=== PATIENT | male | born 1995 | race Caucasian/White ===

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

== ENCOUNTER 2017-02-07 20:20 | Emergency (ER) | payer BC ==
[~2017-02-07] VITALS: Ht 170.2 cm; Wt 61.5 kg
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
--- OUTSIDE RECORDS SUMMARY | 2017-02-07 20:31 | XMS REPORT | Continuity of Care Document ---
Author Author [facility] Organization [facility] Address Unknown Phone Unavailable Allergies Active Description Code Type Severity Reaction Onset Reported/Identified Relationship to Patient Clinical Status Yes No Known Drug Allergies [id number] Drug Allergy Unknown N/ A 11/08/2016 Medications [...] BRONCHITIS NOS 02/13/2015 Ot 493.90 02/22/2015 LARS TATE MD Ot 380.4 IMPACTED CERUMEN 02/22/2015 LARS [...] Ot R10.84 GENERALIZED ABDOMINAL PAIN 11/08/2016 NANETTE ELDRIDGE MD, Ot M54.89 OTHER DORSALGIA 11/08/2016 NANETTE [...] ELDRIDGE MD, Ot Y92.[address] IN [facility] NON-INSTITUT ( PRIVATE) 11/11/2016 NANETTE ELDRIDGE [...] ELDRIDGE MD, Ot Y92.[address] IN [facility] NON-INSTITUT ( PRIVATE) 11/14/2016 SHIRLEY LAMA [...] M79.641 PAIN IN RIGHT HAND 12/10/2016 SHIRLEY LAMA R Ot D72.829 ELEVATED WHITE BLOOD CELL [...] Status Pt. Type Provider Facility Loc./Unit Complaint [id number] 06/23/2015 20:44:00 2014 23:27:00 DIS Emergency [facility] D.ER
[2017-02-07] MEDS ORDERED: BECL8.7A5 IH (20:43)
[2017-02-07 21:04] LABS: BASOPHILS % (AUTO) 0 % (0-2); EOSINOPHILS # (AUTO) 0.2 10^3uL; EOSINOPHILS % (AUTO) 1 % (0-4); LYMPHOCYTES # (AUTO) 1.5 X10^3; MEAN CORPUSCULAR HEMOGLOBIN 29.4 PG (26.0-34.0); MEAN CORPUSCULAR HGB CONC 34.8 g/dL (31.0-37.0); MEAN CORPUSCULAR VOLUME 84 FL (80-100); MONOCYTES # (AUTO) 0.5 X10^3; MONOCYTES % (AUTO) 4 % (3-11); NEUTROPHILS # (AUTO) 9.9 X10^3; NEUTROPHILS % (AUTO) 82 % (51-67); PLATELET COUNT 269 10^3uL (150-450); WHITE BLOOD COUNT 12.01 10^3uL (4.0-11.0)
[2017-02-07 21:11] LABS: BILIRUBIN,URINE Negative (Negative); CLARITY,URINE Clear; COLOR,URINE Yellow; GLUCOSE, URINE (UA) Negative (Negative); LEUKOCYTE ESTERASE, URINE Negative (Negative)
[2017-02-07 21:14] LABS: ALBUMIN 5.1 g/dL (3.4-5.0); ALKALINE PHOSPHATASE 82 U/L (38-126); ANION GAP 17.2 MEQ/L (3-15); BUN/CREATININE RATIO 10 (10-20); TOTAL PROTEIN 8.4 g/dL (6.4-8.5)
[2017-02-07 21:20] LABS: AMPHETAMINE SCREEN, URINE Negative (Negative); CANNABINOID SCREEN, URINE Negative (Negative); METHAMPHETAMINE SCREEN URINE S NEGATIVE (NEGATIVE); OPIATE SCREEN URINE Negative (Negative); PROPOXYPHENE STAT NEGATIVE (NEGATIVE)
[2017-02-07 21:46] VITALS: BP 140/79
== END 2017-02-07 21:45 | disposition home or self-care (01) ==
LOC: ED 20:25
DX: R55 Syncope and collapse (principal); R11.2 Nausea with vomiting, unspecified; F32.9 Major depressive disorder, single episode, unspecified
CPT/HCPCS: 36415; 80053; 80307; 80320; 80329; 81003; 85025; 99282; 99283

== ENCOUNTER → 2017-02-07 | Outpatient (CLI) | payer SELFPAY | LOC: EMS 20:08 | DX: Z53.20 Procedure and treatment not carried out because of patient's decision for unspecified reasons (principal) ==

== ENCOUNTER 2017-03-08 20:26 | Emergency (ER) | payer BC ==
[~2017-03-08] VITALS: Ht 243.8 cm; Wt 62.3 kg
--- OUTSIDE RECORDS SUMMARY | 2017-03-08 20:31 | XMS REPORT | Continuity of Care Document ---
Author Author [facility] Organization [facility] Address Unknown Phone Unavailable Allergies Active Description Code Type Severity Reaction Onset Reported/Identified Relationship to Patient Clinical Status Yes No Known Drug Allergies [id number] Drug Allergy Unknown N/ A 11/08/2016 Yes MACADAMIA NUTS MACADAMIA NUTS Moderate N/A 02/07/2017 Medications Problems Date Dx Coded Attending Type [...] DALEY, ARIEL Ot 462 ACUTE PHARYNGITIS 09/17/2014 FRANKIE DALEY, ARIEL Ot 490 BRONCHITIS NOS 02/13/2015 Ot 493.90 [...] 850.9 CONCUSSION NOS 07/10/2015 KIESHA DALEY, WU L Ot 920 CONTUSION FACE/SCALP/NCK 07/10/2015 KIESHA DALEY, WU Inderjit Ot E006.0 ACTIVITIES INVOLVING ROLLER SKATING ( INL 07/10/2015 KIESHA DALEY, WU L Ot E849.4 ACCID IN RECREATION AREA 07/10/2015 KIESHA DALEY, WU Inderjit Ot E885.2 ACCIDENT DUE TO SKATEBOARD 07/11/2015 PREM WARREN DO Ot 784.0 HEADACHE 07/11/2015 PREM WARREN DO Ot 850.11 CONCUSSION, W LOSS OF CONSCIOUSNESS OF 3 07/11/2015 PREM WARREN DO Ot E885.2 ACCIDENT DUE TO SKATEBOARD 08/12/2015 PREM WARREN DO Ot S40.011A CONTUSION OF RIGHT SHOULDER, INITIAL ENC 08/29/2015 PREM WARREN DO Ot 784.0 08/29/2015 PREM WARREN DO Ot 850.0 10/20/2015 DORIAN MICHELLE MD Ot M54.9 DORSALGIA, UNSPECIFIED 10/20/2015 DORIAN MICHELLE MD Ot M62.830 MUSCLE SPASM OF BACK 12/31/2015 Ot J02.0 01/15/2016 Ot J02.0 05/26/2016 PREM WARREN DO Ot 493.90 ASTHMA, UNSPECIFIED 05/26/2016 Ot 493.90 ASTHMA, UNSPECIFIED 05/26/2016 PREM WARREN DO Ot 784.0 HEADACHE 05/26/2016 PREM WARREN DO Ot 850.0 CONCUSSION W/O COMA 05/26/2016 Ot J02.0 STREPTOCOCCAL PHARYNGITIS 05/26/2016 LUIS E DALEY, ARNOL Negro Ot R10.84 GENERALIZED ABDOMINAL PAIN 06/03/2016 ARNOL KIMBROUGH MD Ot R10.84 GENERALIZED ABDOMINAL PAIN 11/01/2016 PRINCESS BERMUDEZ MD Ot R10.84 GENERALIZED ABDOMINAL PAIN 11/01/2016 PRINCESS BERMUDEZ MD Ot M43.06 SPONDYLOLYSIS, LUMBAR REGION 11/01/2016 PRINCESS BERMUDEZ MD Ot R10.84 GENERALIZED ABDOMINAL PAIN 11/01/2016 SHIRLEY LAMA R Ot R10.84 GENERALIZED ABDOMINAL PAIN 11/03/2016 PRINCESS BERMUDEZ MD Ot R10.84 GENERALIZED ABDOMINAL PAIN 11/03/2016 PRINCESS BERMUDEZ MD Ot M43.06 SPONDYLOLYSIS, LUMBAR REGION 11/03/2016 PRINCESS BERMUDEZ MD Ot R10.84 GENERALIZED ABDOMINAL PAIN 11/04/2016 SHIRLEY LAMA R Ot R10.84 GENERALIZED ABDOMINAL PAIN 11/05/2016 PRINCESS BERMUDEZ MD Ot R10.84 GENERALIZED ABDOMINAL PAIN [...] ELDRIDGE MD, Ot Y92.[address] IN [facility] NON-INSTITUT ( PRIVATE) 11/11/2016 NANETTE ELDRIDGE [...] ELDRIDGE MD, Ot Y92.[address] IN [facility] NON-INSTITUT ( PRIVATE) 11/14/2016 SIGSHIRLEY WARNER R Ot R10.811 RIGHT UPPER QUADRANT ABDOMINAL TENDERNES 11/17/2016 Princess Bermudez MD R55 SYNCOPE AND COLLAPSE 11/17/2016 Princess Bermudez MD R55 SYNCOPE AND COLLAPSE 11/20/2016 SIGSSHIRLEY ARREDONDO R Ot R10.84 GENERALIZED ABDOMINAL PAIN 11/20/2016 SIGSDIOGO MERIDA SHIRLEY R Ot R10.811 RIGHT UPPER QUADRANT ABDOMINAL TENDERNES 11/27/2016 SIGSSHIRLEY ARREDONDO R Ot M79.641 PAIN IN RIGHT HAND 11/28/2016 SIGSBESHIRLEY MCGHEE R Ot M79.641 PAIN IN RIGHT HAND 11/28/2016 PRINCESS BERMUDEZ MD Ot R10.84 GENERALIZED ABDOMINAL PAIN 11/28/2016 SIGSSHIRLEY ARREDONDO R Ot R10.84 GENERALIZED ABDOMINAL PAIN 11/28/2016 PRINCESS BERMUDEZ MD, Ot M43.06 SPONDYLOLYSIS, LUMBAR REGION 11/28/2016 PRINCESS BERMUDEZ MD Ot R10.84 GENERALIZED ABDOMINAL PAIN 11/28/2016 SIGSBESHIRLEY MCGHEE R Ot R10.811 RIGHT UPPER QUADRANT ABDOMINAL TENDERNES 11/28/2016 SIGSBEDebbie MERIDA SHIRLEY R Ot M79.641 PAIN IN RIGHT HAND 11/28/2016 SIGSBEDebbie MERIDA SHIRLEY R Ot D72.829 ELEVATED WHITE BLOOD CELL COUNT, UNSPECI 12/10/2016 SIGSHIRLEY WARNER R Ot M79.641 PAIN IN RIGHT HAND 12/10/2016 SIGSBEDebbie MERIDA SHIRLEY R Ot D72.829 ELEVATED WHITE BLOOD CELL COUNT, UNSPECI 02/07/2017 PRINCESS BERMUDEZ MD Ot R10.84 GENERALIZED ABDOMINAL PAIN 02/07/2017 SHIRLEY LAMA R Ot R10.84 GENERALIZED ABDOMINAL PAIN 02/07/2017 KAISER FRANCOIS MD, PRINCESS Ponce Ot M43.06 SPONDYLOLYSIS, LUMBAR REGION 02/07/2017 PRINCESS BERMUDEZ MD Ot R10.84 GENERALIZED ABDOMINAL PAIN 02/07/2017 SHIRLEY LAMA R Ot R10.811 RIGHT UPPER QUADRANT ABDOMINAL TENDERNES 02/07/2017 SIGSSHIRLEY ARREDONDO R Ot M79.641 PAIN IN RIGHT HAND 02/07/2017 SIGSCORTNEY ARREDONDOLL R Ot D72.829 ELEVATED WHITE BLOOD CELL COUNT, UNSPECI 02/07/2017 WARREN DO, PREM Tamela Ot 493.90 ASTHMA, UNSPECIFIED 02/07/2017 Ot 493.90 ASTHMA, UNSPECIFIED 02/07/2017 WARREN DO, PREM Rapp Ot 784.0 HEADACHE 02/07/2017 KELVIN ROBERTSON PREM Tamela Ot 850.0 CONCUSSION W/O COMA 02/07/2017 Ot J02.0 STREPTOCOCCAL PHARYNGITIS 02/07/2017 PRINCESS BERMUDEZ MD Ot R10.84 GENERALIZED ABDOMINAL PAIN 02/07/2017 SIGSHIRLEY WARNER R Ot R10.84 GENERALIZED ABDOMINAL PAIN 02/07/2017 PRINCESS BERMUDEZ MD Ot M43.06 SPONDYLOLYSIS, LUMBAR REGION 02/07/2017 PRINCESS BERMUDEZ MD Ot R10.84 GENERALIZED ABDOMINAL PAIN 02/07/2017 SHIRLEY LAMA R Ot R10.811 RIGHT UPPER QUADRANT ABDOMINAL TENDERNES 03/05/2017 ARNOL KIMBROUGH MD Ot F32.9 MAJOR DEPRESSIVE DISORDER, SINGLE EPISOD 03/05/2017 ARNOL KIMBROUGH MD Ot R11.2 NAUSEA WITH VOMITING, UNSPECIFIED 03/05/2017 ARNOL KIMBROUGH MD Ot R55 SYNCOPE AND COLLAPSE Procedures Results Test Result Range Complete blood [...] Blood absolute eosinophil count 0.3 Basophils 0.0 UA (urinalysis) - 02/07/17 20:40 COLLECTION METHOD CLEAN CATCH Color of urine by auto Yellow Urine appearance determination Clear Urine pH measurement by automated test strip 7.0 5.0 - 8.0 Specific gravity of urine by automated test strip 1.020 1.005-1.030 PROTEIN, URINE Negative Urine glucose detection by automated test strip Negative Negative Urine erythrocytes count by automated test strip (number/volume) Negative Negative Urine ketones detection by automated test strip Trace Negative NITRITE,URINE Negative Negative Urine total bilirubin detection by automated test strip Negative Negative Urine urobilinogen measurement by automated test strip (mass/volume) 1.0 0.2-1.0 Urine leukocyte esterase detection by dipstick Negative Negative DRUG SCREEN STAT - 02/07/17 20:40 Urine phencyclidine detection by screening method >25 [...] Negative Drugs of abuse panel NEGATIVE NEGATIVE Comprehensive metabolic panel - 02/07/17 20:58 Sodium measurement 96 70-110 CARBON DIOXIDE 28 22-29 Serum or plasma anion gap 17.2 3-15 BLOOD UREA NITROGEN 9 7-18 CREATININE SERUM 0.88 0.8-1.5 Brucella species antibody panel (IgG, IgM) 10 10-20 Estimated glomerular filtration rate (GFR) 135.0 Estimated glomerular filtration rate (GFR) non- 111.6 OSMOLALITY,CALCULATED 278 280-300 CALCIUM 10.0 8.8-10.8 Calculated ionized calcium measurement 4.0 3.8-4.6 BILIRUBIN,TOTAL 1.0 0.1-1.0 Serum or plasma alkaline phosphatase measurement 82 38-126 ASPARTATE AMINO TRANSFERASE 22 15-37 ALANINE AMINOTRANSFERASE 34 30-65 Serum or plasma total protein measurement 8.4 6.4-8.5 Serum or plasma albumin measurement 5.1 3.4-5.0 Serum or plasma albumin/globulin mass ratio 1.545 1.1-1.8 SALICYLATE - 02/07/17 20:58 SALICYLATE < 1.0 2.0-20.0 ACETAMINOPHEN - 02/07/17 20:58 ACETAMINOPHEN < 10.0 10.0-30.0 ALCOHOL - 02/07/17 20:58 ALCOHOL < 10.0 10-80 Complete blood count (CBC) with automated white blood cell (WBC) differential - 02/07/17 20:58 Blood automated leukocyte count 12.01 4.0-11.0 Erythrocytes 5.24 4.50-5.50 12.0-16.0;g/dL 15.4 13.5-17.0 Hematocrit 44.20 39.00-50.00 Automated erythrocyte mean corpuscular volume 84 80-100 Mean corpuscular hemoglobin (MCH) determination 29.4 26.0-34.0 Automated erythrocyte mean corpuscular hemoglobin concentration measurement ( mass/volume) 34.8 31.0-37.0 Erythrocyte distribution width 12.1 11.8 -15.6 Automated blood platelet count 269 150- 450 Automated blood platelet mean volume measurement 10.0 6.0-9.5 Automated neutrophil percentage 82 51- 67 Lymphocytes/100 leukocytes 12 20-46 Automated monocyte percentage 4 3-11 Eosinophil count auto 1 0-4 Automated basophil percentage 0 0-2 Automated blood neutrophil count 9.9 Blood lymphocytes count (number/volume) 1.5 Automated blood monocyte count 0.5 Blood absolute eosinophil count 0.2 Basophils 0.0 Encounters ACCT No. Visit Date/Time Discharge Status Pt. Type Provider Facility Loc./Unit Complaint [id number] 06/23/2015 20:44:00 2014 23:27:00 DIS Emergency Jensen Moreno [facility]
--- NOTE | 2017-03-08 20:35 | NUR ---
Pt presents to ER with c/o fish fin in left hand. Incident happened while fishing at [employer] about one hour ago. Pt unable to get fin out on his own. Admitted to ER room 7. Accompanied by Dad.
--- OUTSIDE RECORDS SUMMARY | 2017-03-08 20:35 | XMS REPORT | Continuity of Care Document ---
Author Author [facility] Organization [facility] Address Unknown Phone Unavailable Allergies Active Description Code Type Severity Reaction Onset Reported/Identified Relationship to Patient Clinical Status Yes No Known Drug Allergies [id number] Drug Allergy Unknown N/ A 11/08/2016 Yes [...] Jensen Moreno E928.8 ACCIDENT NEC 07/01/2015 LARS ATTE MD Ot 922.1 CONTUSION OF CHEST WALL [...] Ot E885.2 ACCIDENT DUE TO SKATEBOARD 08/12/2015 PERM WARREN DO Ot S40.011A CONTUSION OF RIGHT [...] ELDRIDGE MD, Ot Y92.[address] IN [facility] NON-INSTITUT ( PRIVATE) 11/11/2016 NANETTE ELDRIDGE MD, [...] ELDRIDGE MD, Ot Y92.[address] IN [facility] NON-INSTITUT ( PRIVATE) 11/14/2016 SIGSHIRLEY WARNER R [...] Status Pt. Type Provider Facility Loc./Unit Complaint [id number] 06/23/2015 20:44:00 2014 23:27:00 DIS Emergency Jensen Moreno [facility]
[2017-03-08] MEDS ORDERED: LIDOCAINE/EPINEPHRINE 2% 1:100,000 (XYLOCAINE) 30 ML VIAL INJ ONE (20:55)
--- NOTE | 2017-03-08 21:39 | Diagnostic Imaging Report ---
Indication: Left thumb pain after being struck by a catfish. Discussion: Three views left hand were obtained, no comparison. There is a 1.5 cm linear osseous structure adjacent to the first metacarpal midshaft between the first and second metacarpals, consistent with a catfish spine fragment. No other radiopaque foreign body identified. No acute fracture or dislocation. Soft tissue swelling is noted within the web between the first and second fingers. Impression: 1. Osseous foreign body within the soft tissue web between the first and second metacarpals. Dictated by: Dictated on workstation # [id number]
[2017-03-08] MEDS ORDERED: HYDROcodone/APAP 5 MG/325 MG (NORCO) TAB PO ONE (22:00)
[2017-03-08] MEDS ORDERED: CEPHALEXIN 500 MG (KEFLEX) CAPSULE PO ONE (22:00)
[2017-03-08] MEDS ORDERED: HYDR-3702 PO (23:34)
[2017-03-08] MEDS ORDERED: CEPH500T PO (23:34)
[2017-03-08] MEDS ORDERED: ED- CEPHALEXIN 500 MG (KEFLEX) 6 CAPSULES/BTL PO ONE (23:35)
[2017-03-08] MEDS ORDERED: ED- HYDROcodone/ACETAMINOPHEN 5MG/325MG (NORCO) 6 TABLETS/BTL PO ONE (23:35)
--- NOTE | 2017-03-08 23:52 | NUR ---
Pt dismissed to home with instructions, prepacks and information for orthopedic surgeon in [place]. Pt and pt's father stated their understanding. Work excuse provided. Disk from radiology given to pt. Pt left ambulatory to [facility].
[2017-03-09 00:27] VITALS: BP 127/76
--- NOTE | 2017-03-09 07:17 | Diagnostic Imaging Report ---
CLINICAL INDICATION: Evaluate hand. EXAM: X-ray of the left hand, AP view. COMPARISON: X-ray of the left hand, 3 views dated 03/08/2017. FINDINGS: Again seen linear radiodense foreign object seen within the soft tissue adjacent to the first metacarpal bone. Bony ossicle is seen in the first MCP joint region. The remainder of the left hand is unremarkable. IMPRESSION: Stable x-ray of the left hand with linear radiodense foreign body in the soft tissue adjacent to the first metacarpal bone. Dictated by: Dictated on workstation # [id number]
--- NOTE | 2017-03-09 10:39 | EMERGENCY ROOM REPORT ---
DATE OF NOTE: 03/08/2017 CHIEF COMPLAINT: Foreign body in left hand HISTORY OF PRESENT ILLNESS: Jai is a 21-year-old who was fishing this evening at [employer], when he pulled a catfish up the bank and grasped it behind its head. The fish slipped within his hand, and one of the fish's barbs embedded itself in the soft tissue between the first and second metacarpals, with its entrance more on the dorsal surface. They were having difficulty removing it, so his father clipped the aditya about one-half inch above the skin or less, to release the fish. At some point the aditya advanced further into the soft tissue, or edema caused it to no longer protrude, and it became embedded in the soft tissues of the hand. The patient was seen by Dr. Mccormack, who explored the entrance wound under local anesthetic but was not able to find the aditya. I was then called to assess the patient. His tetanus vaccination is up to date and he is otherwise healthy. PHYSICAL EXAM: Temperature 98.3. Heart rate 86. BP 146/90. General: The patient is a young gentleman alert and orientated times 3 in no acute distress. Extremities: Inspection of the left hand reveals an open wound near the MP joint and on the dorsal aspect of the web space between the thumb and index finger. There was a wound about 6 to 7 mm in length orientated longitudely. There was some soft tissue edema and tenderness around the area, with some blanching of the skin from the Lidocaine that had been injected previously. He had difficulty squeezing my fingers and flexing his thumb and index finger due to discomfort. He was not able to extend his thumb and first finger completely either. Motor function seemed to be intact except for some numbness along the inner aspect of the thumb due to the Lidocaine. All five digits of the left hand were warm, pink and well-vascularized. ASSESSMENT: Foreign body, left hand. PLAN: I did explore the entrance wound myself using sterile technique, prepping the area with Betadine. Two percent Lidocaine with Epinephrine was injected around the wound and to a lesser extend into the subcutaneous tissue. The wound was then extended proximally about 5 mm, and a hemostat was used to gently probe the subcutaneous space and the space along the base of the second metacarpal. I was not able to see the foreign body or anything that resembled it. I did use my LUPES for visualization, but still was not able to identify the aditya. After approximately 20 minutes of gentle exploration and analyzing different possible entrance angles, I decided to stop. The wound was irrigated with sterile saline then closed with a single 4-O Ethanlon stitch, with plans for the patient to see a sandy patrick tomorrow for consultation. He will be kept on oral antibiotics administered by Dr. Mccormack and given a prescription for pain medicine.
== END 2017-03-08 23:52 | disposition home or self-care (01) ==
LOC: ED 20:30
DX: S61.442A Puncture wound with foreign body of left hand, initial encounter (principal); W45.8XXA Other foreign body or object entering through skin, initial encounter; Y93.59 Activity, other involving other sports and athletics played individually; Y92.828 Other wilderness area as the place of occurrence of the external cause; Y99.8 Other external cause status
CPT/HCPCS: 73120; 73130; 99282; 99284